=== PATIENT | male | born 2000 | race Two or more races ===

== ENCOUNTER 2021-11-12 09:28 | Emergency (ER) | payer MEDICAID, OTHER ==
[~2021-11-12] VITALS: Ht 167.6 cm; Wt 67.6 kg
[2021-11-12 09:38] VITALS: BP 142/74
--- NOTE | 2021-11-12 09:49 | NUR ---
C/C PATIENT STATED HE WENT FOR A RUN AND BEGAN TO HAVE TESTICLE PAIN, B/L PAIN DENIES TRAUMA TO AREA.
--- NOTE | 2021-11-12 09:50 | NUR ---
MD AT BEDSIDE ASSESSING PATIENT, C/C TESTICLE PAIN
--- NOTE | 2021-11-12 09:53 | NUR ---
URINE SAMPLE CUP GIVEN
--- NOTE | 2021-11-12 10:02 | NUR ---
PATIENT GIVEN WATER PO
--- NOTE | 2021-11-12 10:09 | NUR ---
URINE COLLECTED AND DIPPED, RESULTS NEG MD AWARE.
--- NOTE | 2021-11-12 10:36 | NUR ---
MERCHANDISING DIRECTOR AT BEDSIDE
--- NOTE | 2021-11-12 10:48 | NUR ---
US COMPLETED, PATIENT TOLERATED WELL.
--- NOTE | 2021-11-12 11:59 | NUR ---
PATIENT REMAINS STABLE IN NO ACUTE DISTRESS AND OR DISCOMFORT.
[2021-11-12 12:21] LABS: APPEARANCE,URINE CLEAR (CLEAR); BILIRUBIN,URINE NEGATIVE (NEGATIVE); BLOOD, URINE NEGATIVE (NEGATIVE); COLOR,URINE YELLOW (YELLOW); LEUKOCYTE ESTERASE ,URINE NEGATIVE (NEGATIVE); NITRITE, URINE NEGATIVE (NEGATIVE); PH,URINE 6.5 (5.0-9.0); UGLUCOSE NEGATIVE (NEGATIVE)
[2021-11-12 12:35] VITALS: BP 129/79
--- NOTE | 2021-11-12 12:35 | NUR ---
MD AT BEDSIDE DISCUSSING PLAN OF CARE WITH PATIENT
--- NOTE | 2021-11-12 12:42 | NUR ---
Patient discharged with v/s stable. Written and verbal after care instructions given and explained. Patient verbalized understanding. Ambulatory with steady gait. All questions addressed prior to discharge. Advised to follow up with PMD.
== END 2021-11-12 12:42 | disposition home or self-care (01) ==
LOC: MED 09:28
DX: N50.819 Testicular pain, unspecified (principal)
CPT/HCPCS: 76870; 81003; 87491; 99284; Q0092

== ENCOUNTER 2022-07-15 12:52 | Emergency (ER) | payer OTHER ==
[~2022-07-15] VITALS: Ht 170.2 cm; Wt 69.9 kg
[2022-07-15 13:21] VITALS: BP 126/74
--- NOTE | 2022-07-15 13:30 | NUR ---
BIB SELF C/O R CHEST/BACK PAIN S/P RUN INTO ANOTHER PLAYER WHILE PLAYING BASKETBALL X 6 DAYS. DENIES LOC.
--- NOTE | 2022-07-15 13:32 | NUR ---
Patient being evaluated by LEEANNE FIGUEROA at [facility].
[2022-07-15] MEDS ORDERED: IBUP-2213 PO (14:13)
[2022-07-15 14:25] VITALS: BP 127/76
--- NOTE | 2022-07-15 14:25 | NUR ---
Patient discharged with v/s stable. Written and verbal after care instructions given. Patient alert, oriented and verbalized understanding of instructions. Ambulatory with steady gait. All questions addressed prior to discharge. ID band removed. Patient advised to follow up with PMD. Rx of Ibuprofen given. Opportunity to ask questions provided and answered.
== END 2022-07-15 14:25 | disposition home or self-care (01) ==
LOC: MED 12:52
DX: R07.89 Other chest pain (principal); Z79.899 Other long term (current) drug therapy
CPT/HCPCS: 71045; 99283

== ENCOUNTER 2023-06-24 16:22 | Emergency (ER) | payer OTHER ==
[~2023-06-24] VITALS: Ht 167.6 cm; Wt 68.0 kg
[~2023-06-24 16:22] MED LIST: IBUP-2213 PO
[2023-06-24 16:27] VITALS: BP 116/67; PULSE 61; RESP 16; TEMP 98.1; O2SAT 100
[2023-06-24 17:59] VITALS: BP 120/70; PULSE 75; RESP 16; TEMP 98.1; O2SAT 100
== END 2023-06-24 17:59 | disposition home or self-care (01) ==
LOC: MED 16:22
DX: R22.2 Localized swelling, mass and lump, trunk (principal); Z79.899 Other long term (current) drug therapy
CPT/HCPCS: 99284